=== PATIENT | female | born 1955 | race Caucasian/White ===

== ENCOUNTER 2021-06-15 09:02 | Inpatient (IN) | payer MEDICARE ==
[~2021-06-15] VITALS: Ht 157.5 cm; Wt 104.3 kg
[~2021-06-15 09:02] MED LIST: ALL DAY ALLERGY10 M2 PO; CARDIZEM CD240 MG PO; CRESTOR10 MG PO; DURAGESIC 25 MCG1 EA TD; HYDROCHLOROTHIA25 MG PO; LOPRESSOR100 MG PO; NORCO 10-325 T1 EACH PO; PANTOPRAZOLE SO40 MG PO; PHENERGAN 25 MG25 M1 PO; PREDNISONE 50 M50 MG PO; PROZAC 20 MG CA20 MG PO; REMERON15 MG PO; ZANAFLEX4 MG PO; ZOFRAN4 MG PO
[2021-06-15 10:09] LABS: HEMOGLOBIN 13.7 gm/dl (12.3-15.3); RED BLOOD COUNT 4.45 M/UL (4.00-5.10); WHITE BLOOD COUNT 10.9 K/UL (4.5-11.0)
[2021-06-15 10:40] LABS: BUN/CREATININE RATIO 10 (0-10)
[2021-06-15] MEDS ORDERED: GABAPENTIN400 MG PO (14:13)
[2021-06-15] MEDS ORDERED: HYDROCODON-ACE1 EAC6 PO (14:14)
[2021-06-15] MEDS ORDERED: ROPINIROLE HCL1 MG PO (14:14)
[2021-06-15] MEDS ORDERED: OMEPRAZOLE40 MG PO (14:15)
[2021-06-15] MEDS ORDERED: OSTEO BI-FLEX1 EACH PO (14:15)
[2021-06-15] MEDS ORDERED: UNISOM25 MG PO (14:16)
--- NOTE | 2021-06-15 16:25 | NUR ---
PATIENT IS WEAK ON HER LEFT SIDE SHE CANNOT RAISE AND MAINTAIN HER LEFT LEG AGAINST GRAVITY FOR MORE THAN 3 SECONDS, HER LEFT PCAS IS ALSO NOTABLY WEAKER, FACE IS SYMMETRICAL AND NO LOSS OF VISION DESCRIBED. SHE IS ALERT AND FULLY ORIENTED X4.
[2021-06-16 02:58] LABS: HEMOGLOBIN 12.9 gm/dl (12.3-15.3); RED BLOOD COUNT 4.31 M/UL (4.00-5.10); WHITE BLOOD COUNT 8.4 K/UL (4.5-11.0)
[2021-06-16 04:33] LABS: BUN/CREATININE RATIO 9 (0-10)
[2021-06-16] MEDS ORDERED: ASPIRIN EC81 MG PO (10:47)
[2021-06-16] MEDS ORDERED: ATORVASTATIN CA20 MG PO (10:47)
[2021-06-16] MEDS ORDERED: NICOTINE PATCH1 EAC1 TD (10:47)
[2021-06-16] MEDS ORDERED: OMEPRAZOLE40 MG PO (11:10)
[2021-06-16] MEDS ORDERED: CARDIZEM CD240 MG PO (11:10)
[2021-06-16] MEDS ORDERED: HYDROCHLOROTHIA25 MG PO (11:10)
== END 2021-06-16 12:24 | disposition home or self-care (01) | DRG 66 ==
LOC: ER1 09:02 → MED SURG 4 12:31
PROVIDERS: Physician Assistant Medical; Student in an Organized Health Care Education/Training Program; ADMIT Internal Medicine Infectious Disease
DX: I63.9 Cerebral infarction, unspecified (principal); E87.6 Hypokalemia; E83.42 Hypomagnesemia; I10 Essential (primary) hypertension; E78.5 Hyperlipidemia, unspecified; J44.9 Chronic obstructive pulmonary disease, unspecified; F17.200 Nicotine dependence, unspecified, uncomplicated; R20.0 Anesthesia of skin; R29.810 Facial weakness; Z90.49 Acquired absence of other specified parts of digestive tract; Z98.890 Other specified postprocedural states; Z82.3 Family history of stroke; Z82.49 Family history of ischemic heart disease and other diseases of the circulatory system; Z83.3 Family history of diabetes mellitus
CPT/HCPCS: ECHO; 36415; 70450; 71045; 80048; 80053; 80061; 82550; 82553; 83735; 84132; 84484; 85025; 85027; 93005; 93306; 93880; 94664; 96374; 97161; 97166; 99285; J0360; U0002

== ENCOUNTER 2021-09-20 12:04 | Emergency (ER) | payer MEDICARE ==
[~2021-09-20 12:04] MED LIST changes: +ASPIRIN EC81 MG PO; +ATORVASTATIN CA20 MG PO; +GABAPENTIN400 MG PO; +HYDROCODON-ACE1 EAC6 PO; +NICOTINE PATCH1 EAC1 TD; +OMEPRAZOLE40 MG PO; +OSTEO BI-FLEX1 EACH PO; +ROPINIROLE HCL1 MG PO; +UNISOM25 MG PO
[2021-09-20 13:57] LABS: HEMOGLOBIN 13.1 gm/dl (12.3-15.3); RED BLOOD COUNT 4.33 M/UL (4.00-5.10); WHITE BLOOD COUNT 13.3 K/UL (4.5-11.0)
[2021-09-20 14:33] LABS: BUN/CREATININE RATIO 11 (0-10)
== END 2021-09-20 20:29 | disposition left against medical advice (07) ==
LOC: ER1 12:04
PROVIDERS: Physician Assistant Medical
DX: K85.90 Acute pancreatitis without necrosis or infection, unspecified (principal); I10 Essential (primary) hypertension; K21.9 Gastro-esophageal reflux disease without esophagitis; J44.9 Chronic obstructive pulmonary disease, unspecified; Z90.49 Acquired absence of other specified parts of digestive tract; Z88.8 Allergy status to other drugs, medicaments and biological substances; F17.210 Nicotine dependence, cigarettes, uncomplicated; Z20.822 Contact with and (suspected) exposure to COVID-19
CPT/HCPCS: 80053; 81001; 82550; 82553; 83605; 83690; 84484; 85025; 96374; 96375; 96376; 99283; C9113; J0360; J2270; J2550; Q9967; U0002

== ENCOUNTER 2021-12-12 18:49 | Emergency (ER) | payer MEDICARE | END 2021-12-12 20:36 | disposition left against medical advice (07) | LOC: ER1 18:49 | DX: Z53.21 Procedure and treatment not carried out due to patient leaving prior to being seen by health care provider (principal) ==